=== PATIENT | male | born 1955 | race Caucasian/White ===

== ENCOUNTER 2016-03-28 06:22 | Inpatient (IN) | payer OTHER ==
[~2016-03-28] VITALS: Ht 188 cm; Wt 115.0 kg
[2016-03-28] VITALS (11 sets, daily range): BP systolic 133–189; BP diastolic 86–106; PULSE 93–125; RESP 13–20; TEMP 96.2–98.8; O2SAT 95–98
[2016-03-28] MEDS ORDERED: TRAM50TA PO (06:40)
[2016-03-28] MEDS ORDERED: VERA80TA PO (06:40)
[2016-03-28] MEDS ORDERED: ASPI81CH CHEW (06:40)
[2016-03-28] MEDS ORDERED: LORazepam 2 MG/ML VIAL IV PUSH ONE ×2 (06:45→07:30)
[2016-03-28] MEDS ORDERED: SODIUM CHLORIDE 0.9% FLUSH 5 ML FLUSH IVF PRN (06:45)
[2016-03-28] MEDS ORDERED: PANTOPRAZOLE INJ 80 MG in SODIUM CHLORIDE 0.9% INJ 35 ML IV ONE (06:45)
--- NOTE | 2016-03-28 06:53 | PD ---
HPI Chief Complaint: GI Complaint Time Seen by Provider: 06:44 Travel History International Travel<30 days: No Contact w/Intl Traveler<30days: No Traveled to known affect area: No History of Present Illness HPI This is a 60-year-old male who presents to the emergency department with rectal bleeding. Patient reports that last night he had an episode of vomiting and then today he had an episode of black loose stools. Patient reports some mild cramping abdominal pain near the bellybutton. He does say he feels somewhat lightheaded, dizzy and anxious. He's never had GI bleeding before. He had a colonoscopy 5 years ago which was normal. He does drink alcohol and he says he drinks about 6 drinks a day. He recently started drinking more heavily again after being sober for 3-4 months. He does take a baby aspirin every day and takes ibuprofen intermittently for arthritis. PFSH Past Medical History Heart Rhythm Problems: Yes (SVT) Cardiovascular Problems: Yes (HTN) Hypertension: Yes Tetanus Vaccination: < 5 Years Influenza Vaccination: Yes Social History Alcohol Use: Yes (6BEERS/ DAY) Tobacco Use: No Substance Use: No Allergies-Medications (Allergen,Severity, Reaction): Coded Allergies: Lisinopril (Verified Allergy, Mild, 03/28/16) ANGIOEDEMA Reported Meds & Prescriptions Reported Meds & Active Scripts Active Reported Verapamil (Verapamil HCl) 80 Mg Tab 80 Mg PO DAILY Tramadol (Tramadol HCl) 50 Mg Tab 50 Mg PO Q6H PRN Aspirin 81 Mg Chew 81 Mg CHEW DAILY Review of Systems Except as stated in HPI: all other systems reviewed are Neg Physical Exam Narrative GENERAL: Anxious appearing. SKIN: Warm and dry. HEAD: Atraumatic. Normocephalic. EYES: Pupils equal and round. No injection or drainage. ENT: Moist mucous membranes NECK: Trachea midline. CARDIOVASCULAR: Tachycardic. No murmur appreciated. RESPIRATORY: Clear to auscultation. Breath sounds equal bilaterally. GASTROINTESTINAL: Abdomen soft, non-tender, nondistended. Obvious melena on digital rectal exam. MUSCULOSKELETAL: No obvious deformities. NEUROLOGICAL: Awake and alert. No obvious cranial nerve deficits. All extremities. Data Data Last Documented VS Vital Signs Date Time Temp Pulse Resp B/P Pulse Ox O2 Delivery O2 Flow Rate FiO2 03/28/16 06:32 98.4 120 13 189/106 98 03/28/16 06:25 Room Air Orders Complete Blood Count With Diff (03/28/16 06:44) Comprehensive Metabolic Panel (03/28/16 06:44) Prothrombin Time / Inr (Pt) (03/28/16 06:44) Act Partial Throm Time (Ptt) (03/28/16 06:44) Type And Screen (03/28/16 06:44) Red Blood Cells (Rbc) (03/28/16 06:44) Ecg Monitoring (03/28/16 06:44) Iv Access Insert/Monitor (03/28/16 06:44) Oximetry (03/28/16 06:44) Sodium Chloride 0.9% Flush (Ns Flush) (03/28/16 06:45) Pantoprazole Inj (Protonix Inj) (03/28/16 06:45) Pantoprazole Inj (Protonix Inj) (03/28/16 06:45) Lorazepam Inj (Ativan Inj) (03/28/16 06:45) MDM Medical Decision Making Medical Screen Exam Complete: Yes Emergency Medical Condition: Yes Interpretation(s) Afebrile, tachycardic, hypertensive Differential Diagnosis Upper GI bleed, lower GI bleed, gastroenteritis, colitis, alcohol withdrawal Narrative Course This is a 60-year-old male who has a history of heavy alcohol use who presents to the emergency department with melena that started this morning. He was placed on a monitor and an IV was established. He is found to be tachycardic and hypertensive which to me suggests early alcohol withdrawal. He was given a milligram of IV Ativan. I think he should be reassessed and he may need further treatment. He was placed on a pantoprazole infusion. Hemoglobin will be checked. He was typed and crossed for 2 units of blood. Patient should be admitted for upper GI bleed following results of laboratory values. HemaPrompt Point of Care Internal Pos. & Neg. Controls: Passed Fecal Specimen Occult Blood: Positive Oksana Ayala MD Mar 28, 2016 06:53
[2016-03-28 07:02] LABS: AUTOMATED NEUTROPHIL # 7.1 TH/MM3 (1.8-7.7); BASOPHIL # 0.1 TH/MM3 (0-0.2); BASOPHIL % 0.6 % (0.0-2.0); EOSINOPHIL # 0.1 TH/MM3 (0-0.4); EOSINOPHIL % 0.8 % (0.0-4.0); HEMATOCRIT 41.7 % (39.0-51.0); HEMO FLAGS DIFF FINAL; LYMPH % 25.3 % (9.0-44.0); LYMPHOCYTE # 2.7 TH/MM3 (1.0-4.8); MEAN CELL VOLUME 88.8 FL (80.0-100.0); MEAN CORPUSCULAR HEMOGLOBIN 30.6 PG (27.0-34.0); MEAN CORPUSCULAR HGB CONC 34.5 % (32.0-36.0); MONO % 6.6 % (0.0-8.0); NEUT % 66.7 % (16.0-70.0); PLATELET COUNT 174 TH/MM3 (150-450); RED CELL DISTRIBUTION WIDTH 14.6 % (11.6-17.2); WHITE BLOOD COUNT 10.6 TH/MM3 (4.0-11.0)
[2016-03-28 07:12] LABS: APTT (PATIENT) 26.7 SEC (24.3-30.1); INTERNATIONAL NORMALIZED RATIO 1.1 RATIO; PROTHROMBIN TIME - PATIENT 12.1 SEC (9.8-11.6)
[2016-03-28 07:16] LABS: ANION GAP 11 MEQ/L (5-15); AST (GOT) 29 U/L (15-37); BICARBONATE 25.6 MEQ/L (21.0-32.0); BLOOD UREA NITROGEN 30 MG/DL (7-18); CHLORIDE 103 MEQ/L (98-107); GLOMERULAR FILTRATION RATE 84 ML/MIN (>89); POTASSIUM 4.5 MEQ/L (3.5-5.1); SODIUM (NA) 140 MEQ/L (136-145)
[2016-03-28 07:19] LABS: ALKALINE PHOSPHATASE 55 U/L (45-117); ALT (GPT) 29 U/L (12-78)
--- NOTE | 2016-03-28 07:22 | PD ---
Data Data Last Documented VS Vital Signs Date Time Temp Pulse Resp B/P Pulse Ox O2 Delivery O2 Flow Rate FiO2 03/28/16 06:49 14 98 Room Air 03/28/16 06:32 98.4 120 189/106 Orders Complete Blood Count With Diff (03/28/16 06:44) Comprehensive Metabolic Panel (03/28/16 06:44) Prothrombin Time / Inr (Pt) (03/28/16 06:44) Act Partial Throm Time (Ptt) (03/28/16 06:44) Type And Screen (03/28/16 06:44) Red Blood Cells (Rbc) (03/28/16 06:44) Ecg Monitoring (03/28/16 06:44) Iv Access Insert/Monitor (03/28/16 06:44) Oximetry (03/28/16 06:44) Sodium Chloride 0.9% Flush (Ns Flush) (03/28/16 06:45) Pantoprazole Inj (Protonix Inj) (03/28/16 06:45) Pantoprazole Inj (Protonix Inj) (03/28/16 06:45) Lorazepam Inj (Ativan Inj) (03/28/16 06:45) Magnesium (Mg) (03/28/16 07:00) Lorazepam Inj (Ativan Inj) (03/28/16 07:30) Chlordiazepoxide (Librium) (03/28/16 07:30) Labs Laboratory Tests Test 03/28/16 06:40 White Blood Count 10.6 TH/MM3 Red Blood Count 4.70 MIL/MM3 Hemoglobin 14.4 GM/DL Hematocrit 41.7 % Mean Corpuscular Volume 88.8 FL Mean Corpuscular Hemoglobin 30.6 PG Mean Corpuscular Hemoglobin 34.5 % Concent Red Cell Distribution Width 14.6 % Platelet Count 174 TH/MM3 Mean Platelet Volume 9.0 FL Neutrophils (%) (Auto) 66.7 % Lymphocytes (%) (Auto) 25.3 % Monocytes (%) (Auto) 6.6 % Eosinophils (%) (Auto) 0.8 % Basophils (%) (Auto) 0.6 % Neutrophils # (Auto) 7.1 TH/MM3 Lymphocytes # (Auto) 2.7 TH/MM3 Monocytes # (Auto) 0.7 TH/MM3 Eosinophils # (Auto) 0.1 TH/MM3 Basophils # (Auto) 0.1 TH/MM3 CBC Comment DIFF FINAL Differential Comment Prothrombin Time 12.1 SEC Prothromb Time International 1.1 RATIO Ratio Activated Partial 26.7 SEC Thromboplast Time Sodium Level 140 MEQ/L Potassium Level 4.5 MEQ/L Chloride Level 103 MEQ/L Carbon Dioxide Level 25.6 MEQ/L Anion Gap 11 MEQ/L Blood Urea Nitrogen 30 MG/DL Creatinine 0.91 MG/DL Estimat Glomerular Filtration 84 ML/MIN Rate Random Glucose 160 MG/DL Calcium Level 9.2 MG/DL Total Bilirubin 1.0 MG/DL Aspartate Amino Transf 29 U/L (AST/SGOT) Alanine Aminotransferase 29 U/L (ALT/SGPT) Alkaline Phosphatase 55 U/L Total Protein 8.2 GM/DL Albumin 4.0 GM/DL Blood Type A NEGATIVE MDM Supervised Visit with YINKA: No Narrative Course Patient signed out to me by previous provider. Please see associated over further details. In short patient is a 60-year-old male with history of alcohol abuse here with rectal bleeding, melanotic stools. Mild periumbilical abdominal discomfort with lightheadedness, dizziness. No history of GI bleeding , normal colonoscopy 5 years ago. Previous provider had strong suspicion for upper GI bleed given his alcohol, NSAID abuse. Signed out to me pending labs for ultimate admission. Patient tachycardic and given Ativan prior to my evaluation. He remains tachycardic given an additional 0.5 mg Ativan IV and 10 mg Librium orally. Laboratory workup unremarkable. Patient will be admitted for further evaluation of upper GI bleed, likely upper endoscopy. Diagnosis Primary Impression: Upper GI bleed Additional Impressions: Alcohol abuse Melena Admitting Information Admitting Physician Requests: Admit Lenore Crenshaw MD Mar 28, 2016 07:22
[2016-03-28] MEDS: PANTOPRAZOLE INJ 80 MG in SODIUM CHLORIDE 0.9% INJ 100 ML IV SCH ×2 (07:31→19:52)
[2016-03-28] MEDS ORDERED: FLUMAZENIL 0.5 MG/5 ML VIAL IV PUSH PRN (08:15)
[2016-03-28] MEDS ORDERED: SODIUM CHLORIDE 0.9% FLUSH 5 ML FLUSH FLUSH PRN (08:15)
[2016-03-28] MEDS ORDERED: LORazepam 1 MG TAB PO PRN (08:15)
[2016-03-28] MEDS ORDERED: LORazepam 2 MG/ML VIAL IV PUSH PRN ×4 (08:15)
[2016-03-28] MEDS ORDERED: LORazepam 2 MG TAB PO PRN (08:15)
[2016-03-28] MEDS: SODIUM CHLORIDE 0.9% FLUSH 5 ML FLUSH FLUSH SCH ×2 (09:00→21:00)
[2016-03-28] MEDS ORDERED: traMADol HCL 50 MG TAB PO PRN (09:00)
[2016-03-28] MEDS: VERAPAMIL HCL 80 MG TAB PO SCH (09:00)
[2016-03-28] MEDS ORDERED: ONDANSETRON HCL 4 MG/2 ML VIAL IV PRN (09:00)
[2016-03-28] MEDS ORDERED: cloNIDine HCL 0.1 MG TAB PO PRN (09:00)
--- NOTE | 2016-03-28 09:30 | PD.CONS ---
HPI History of Present Illness This is a 60 year old male patient who was not feeling well yesterday after playing golf. He had a few beers and states that probably didn't help. He tried to eat a BBQ [place], but states he vomited this back up. He reports that this was undigested food and a small amount of red blood. He went to bed and woke up around 530am with abdominal pain. He states that he had a "grumbling pain" throughout his abdomen without radiation and the urge to move his bowels. He then passed a large amount of black tarry stool. He does not usually get heartburn, although he did have some indigestion Thursday night. He did not take any OTC medications. No recent abnormal weight loss, decreased appetite. He does take a couple of Advil per day for arthritic knee pain. He drinks 6 beers a day. He has never had ulcers. He has never had a EGD, but had a colonoscopy 10 years ago and reports that this was normal. (Siri Keenan) PFSH Past Medical History HTN Daily ETOH use PSVT Past Surgical History Bilateral knee surgeries Right elbow surgery (Siri Keenan) Coded Allergies: Lisinopril (Verified Allergy, Mild, 03/28/16) ANGIOEDEMA Medications Allergies Coded Allergies Type Severity Reaction Last Updated Verified Lisinopril Allergy Mild 03/28/16 Yes Active Scripts Medications Dose Route/Sig Days Date Category Verapamil (Verapamil HCl) 80 Mg Tab 80 Mg PO DAILY 03/28/16 Reported Tramadol (Tramadol HCl) 50 Mg Tab 50 Mg PO Q6H PRN 03/28/16 Reported Aspirin 81 Mg Chew 81 Mg CHEW DAILY 03/28/16 Reported Family History Mother had colon cancer, diagnosed around 60 years of age. Social History No tobacco, no illicit drug use He drinks 6 beers a day. (Siri Keenan) Review of Systems Constitutional: COMPLAINS OF: Fatigue, Weight loss (intentional), DENIES: Change in appetite Respiratory: DENIES: Cough Cardiovascular: DENIES: Chest pain Gastrointestinal: COMPLAINS OF: Abdominal pain, Black stools, Nausea, Vomiting , Heartburn, DENIES: Bloody stools, Constipation, Diarrhea, Anorexia, Hematemesis Musculoskeletal: DENIES: Joint pain, Neck pain Integumentary: DENIES: Abnormal pigmentation Hematologic/lymphatic: DENIES: Bruising Neurologic: DENIES: Headache Psychiatric: DENIES: Confusion (KeenanSiri) GI Exam Vitals I&O Vital Signs Date Time Temp Pulse Resp B/P Pulse Ox O2 Delivery O2 Flow Rate FiO2 03/28/16 07:30 102 16 178/94 96 03/28/16 06:49 14 98 Room Air 03/28/16 06:32 98.4 120 13 189/106 98 03/28/16 06:25 97.3 125 16 141/100 97 Room Air Laboratory Test 03/28/16 06:40 White Blood Count 10.6 TH/MM3 Red Blood Count 4.70 MIL/MM3 Hemoglobin 14.4 GM/DL Hematocrit 41.7 % Mean Corpuscular Volume 88.8 FL Mean Corpuscular Hemoglobin 30.6 PG Mean Corpuscular Hemoglobin 34.5 % Concent Red Cell Distribution Width 14.6 % Platelet Count 174 TH/MM3 Mean Platelet Volume 9.0 FL Neutrophils (%) (Auto) 66.7 % Lymphocytes (%) (Auto) 25.3 % Monocytes (%) (Auto) 6.6 % Eosinophils (%) (Auto) 0.8 % Basophils (%) (Auto) 0.6 % Neutrophils # (Auto) 7.1 TH/MM3 Lymphocytes # (Auto) 2.7 TH/MM3 Monocytes # (Auto) 0.7 TH/MM3 Eosinophils # (Auto) 0.1 TH/MM3 Basophils # (Auto) 0.1 TH/MM3 CBC Comment DIFF FINAL Differential Comment Prothrombin Time 12.1 SEC Prothromb Time International 1.1 RATIO Ratio Activated Partial 26.7 SEC Thromboplast Time Sodium Level 140 MEQ/L Potassium Level 4.5 MEQ/L Chloride Level 103 MEQ/L Carbon Dioxide Level 25.6 MEQ/L Anion Gap 11 MEQ/L Blood Urea Nitrogen 30 MG/DL Creatinine 0.91 MG/DL Estimat Glomerular Filtration 84 ML/MIN Rate Random Glucose 160 MG/DL Calcium Level 9.2 MG/DL Magnesium Level 1.8 MG/DL Total Bilirubin 1.0 MG/DL Aspartate Amino Transf 29 U/L (AST/SGOT) Alanine Aminotransferase 29 U/L (ALT/SGPT) Alkaline Phosphatase 55 U/L Total Protein 8.2 GM/DL Albumin 4.0 GM/DL Blood Type A NEGATIVE Antibody Screen NEGATIVE Crossmatch Leukocyte-Reduced Red Blood Cells Blood Bank Comment Physical Examination HEENT: Normocephalic; atraumatic; no jaundice. Throat is clear. NECK: Neck is supple, no JVD, no lymphadenopathy. CHEST: CTA CARDIAC: ST 103 ABDOMEN: Soft, nondistended, nontender; no hepatosplenomegaly; bowel sounds are present in all four quadrants. EXTREMITIES: No clubbing, cyanosis, or edema. SKIN: Normal; no rash; no jaundice. 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 (Siri Keenan) Assessment and Plan Plan ASSESSMENT: - GIB, hematemesis, melena. Pt felt ill yesterday and vomited undigested food with small amount of blood last night. Woke up and had lower abdominal cramping and melena this am. No prior hx of PUD. Takes 2 Advil per day for arthritic knee pain. Drinks 6 beers per day. No hx of PUD. Never had EGD. NPO. Protonix Gtt. - Abdominal pain. Lower abdominal cramping followed by melena. Not currently having. - ETOH abuse. Daily ETOH use with 6 beers per day. LFT normal. Never has had DTs. DT precautions per primary PLAN: - Plan for egd today - Obtain consents - NPO - Monitor HH - Transfuse as necessary - Protonix gtt - Supportive care - Further recommendations to follow based on results of above - Pt seen and examined by Dr. Murdock and myself and this note is written on her behalf (Siri Keenan) Physician Comments seen, examined agree with above states he actually chocked on the food , than he vomited states he had similar episodes in the past (Dottie Murdock MD) Siri Keenan Mar 28, 2016 09:30 Dottie Murdock MD Mar 28, 2016 13:19
[2016-03-28] MEDS: SODIUM CHLOR 0.9% 1000 ML INJ 1,000 ML IV SCH ×2 (10:26→16:36)
--- NOTE | 2016-03-28 11:01 | HHI.HP ---
[facility] Service [facility] ([place], [place])ists Primary Care Physician [facility] Admission Diagnosis upper GI bleed, alcohol withdrawal Diagnoses: Chief Complaint: Black stool. Hematemesis. Travel History International Travel<30 Days: No Contact w/Intl Traveler <30 Da: No Traveled to Known Affected Are: No History of Present Illness 60-year-old male with a medical history significant for hypertension, PSVT, osteoarthritis, alcohol abuse who presents with complaint of black stool and a few episodes of hematemesis. The patient reports that he was eating a pork sandwich a couple of days ago when suddenly he felt like he was choking and vomited the food with some blood in it. He recalled the blood being about a quarter size. This morning he had a large amount of black tarry stool which prompted the emergency room visit. He reports mild diffuse abdominal pain. He admits to drinking 6 beers daily. Will normally take 2-4 tablets of ibuprofen for osteoarthritis and at times Aleve. Currently reports feeling a little weak. No nausea. Last colonoscopy was 10 years ago and was reportedly normal. Patient is being admitted for GI bleeding. Review of Systems Constitutional: COMPLAINS OF: Fatigue, DENIES: Fever, Chills Endocrine: DENIES: Polyuria Eyes: DENIES: Blurred vision Ears, nose, mouth, throat: DENIES: Oral lesions Respiratory: DENIES: Cough, Shortness of breath Cardiovascular: DENIES: Chest pain, Palpitations Gastrointestinal: COMPLAINS OF: Black stools Genitourinary: DENIES: Dysuria Other All other systems reviewed and are negative. Past Family Social History Past Medical History HTN Alcohol abuse Osteoarthritis of the knees. PSVT Past Surgical History Bilateral knee arthroscopic surgery Right elbow surgery Reported Medications Reported Meds & Active Scripts Active Reported Verapamil (Verapamil HCl) 80 Mg Tab 80 Mg PO DAILY Tramadol (Tramadol HCl) 50 Mg Tab 50 Mg PO Q6H PRN Aspirin 81 Mg Chew 81 Mg CHEW DAILY Allergies: Coded Allergies: Lisinopril (Verified Allergy, Mild, 03/28/16) ANGIOEDEMA Family History Mother had colon cancer, diagnosed around 60 years of age. She from Glioblastoma Social History No tobacco, no illicit drug use He drinks 6 beers a day. 16 oz each Physical Exam Vital Signs Vital Signs Date Time Temp Pulse Resp B/P Pulse Ox O2 Delivery O2 Flow Rate FiO2 03/28/16 10:00 102 20 156/95 97 Room Air 03/28/16 07:30 102 16 178/94 96 03/28/16 06:49 14 98 Room Air 03/28/16 06:32 98.4 120 13 189/106 98 03/28/16 06:25 97.3 125 16 141/100 97 Room Air Physical Exam GENERAL: This is a well-nourished, well-developed patient, in no apparent distress. SKIN: No rashes, ecchymoses or lesions. Cool and dry. HEAD: Atraumatic. Normocephalic. No temporal or scalp tenderness. EYES: Pupils equal round and reactive. Extraocular motions intact. No scleral icterus. No injection or drainage. ENT: Nose without bleeding, purulent drainage or septal hematoma. Throat without erythema, tonsillar hypertrophy or exudate. Uvula midline. Airway patent. NECK: Trachea midline. No JVD or lymphadenopathy. Supple, nontender, no meningeal signs. CARDIOVASCULAR: Regular rate and rhythm without murmurs, gallops, or rubs. RESPIRATORY: Clear to auscultation. Breath sounds equal bilaterally. No wheezes , rales, or rhonchi. GASTROINTESTINAL: Abdomen soft, non-tender, nondistended. No hepato-splenomegaly , or palpable masses. No guarding. MUSCULOSKELETAL: Extremities without clubbing, cyanosis, or edema. No joint tenderness, effusion, or edema noted. No calf tenderness. Negative Homans sign bilaterally. NEUROLOGICAL: Awake and alert. Cranial nerves II through XII intact. Motor and sensory grossly within normal limits. Five out of 5 muscle strength in all muscle groups. Normal speech. Laboratory Laboratory Tests Test 03/28/16 03/28/16 06:40 08:37 White Blood Count 10.6 Red Blood Count 4.70 Hemoglobin 14.4 Hematocrit 41.7 Mean Corpuscular Volume 88.8 Mean Corpuscular Hemoglobin 30.6 Mean Corpuscular Hemoglobin 34.5 Concent Red Cell Distribution Width 14.6 Platelet Count 174 Mean Platelet Volume 9.0 Neutrophils (%) (Auto) 66.7 Lymphocytes (%) (Auto) 25.3 Monocytes (%) (Auto) 6.6 Eosinophils (%) (Auto) 0.8 Basophils (%) (Auto) 0.6 Neutrophils # (Auto) 7.1 Lymphocytes # (Auto) 2.7 Monocytes # (Auto) 0.7 Eosinophils # (Auto) 0.1 Basophils # (Auto) 0.1 CBC Comment DIFF FINAL Differential Comment Prothrombin Time 12.1 Prothromb Time International 1.1 Ratio Activated Partial 26.7 Thromboplast Time Sodium Level 140 Potassium Level 4.5 Chloride Level 103 Carbon Dioxide Level 25.6 Anion Gap 11 Blood Urea Nitrogen 30 Creatinine 0.91 Estimat Glomerular Filtration 84 Rate Random Glucose 160 Calcium Level 9.2 Magnesium Level 1.8 Total Bilirubin 1.0 Aspartate Amino Transf 29 (AST/SGOT) Alanine Aminotransferase 29 (ALT/SGPT) Alkaline Phosphatase 55 Total Protein 8.2 Albumin 4.0 Blood Type A NEGATIVE A NEGATIVE Antibody Screen NEGATIVE Crossmatch Leukocyte-Reduced Red Blood Cells Blood Bank Comment Result Diagram: 03/28/1663903/28/16639 Assessment and Plan Problem List: (1) Upper GI bleed ICD Code: K92.2 Status: Acute (2) Melena ICD Code: K92.1 Status: Acute (3) Alcohol abuse ICD Code: F10.10 Status: Acute Assessment and Plan 60-year-old male with: GI bleeding: Probably upper GI bleeding. Patient reports episodes of hematemesis and later black tarry stools. He is an alcoholic who also takes NSAIDs. - H&H currently stable. Monitor every 8 hours. - Continue Protonix drip. Keep NPO. - GI consulted - Patient counseled on alcohol cessation and avoiding NSAIDs. Alcohol abuse: CIWA protocol. Patient counseled on the adverse effects of alcohol on his health. GI prophylaxis: PPI. DVT PPx: SCDs Discussed Condition With Dr. Barrera Physician Certification 2 Midnight Certification Type: Admission for Inpatient Services Order for Inpatient Services The services are ordered in accordance with Medicare regulations or non- Medicare payer requirements, as applicable. In the case of services not specified as inpatient-only, they are appropriately provided as inpatient services in accordance with the 2-midnight benchmark. Estimated LOS (days): 2 days is the estimated time the patient will need to remain in the hospital, assuming treatment plan goals are met and no additional complications. Post-Hospital Plan: Home Brady Jackson MD Mar 28, 2016 11:01
[2016-03-28] MEDS ORDERED: EPINEPHrine HCL (1:10,000) 1 MG/10 ML SYRINGE SQ ONE (12:53)
[2016-03-28] MEDS ORDERED: PROPOFOL 200 MG/20 ML AMP IV ONE (12:54)
[2016-03-28] MEDS: THIAMINE INJ 100 MG in SODIUM CHLORIDE 0.9% INJ 100 ML IV SCH (14:23)
[2016-03-28 15:29] LABS: HEMATOCRIT 36.9 % (39.0-51.0); REVIEW FLAG FINAL
[2016-03-28 20:39] LABS: HEMATOCRIT 35.6 % (39.0-51.0); REVIEW FLAG FINAL
[2016-03-28] MEDS ORDERED: diphenhydrAMINE HCL 50 MG CAP PO PRN (20:45)
[2016-03-29] VITALS: BP 130/103; PULSE 91; RESP 20; TEMP 97.3; O2SAT 95
[2016-03-29 04:00] VITALS: BP 140/95; PULSE 88; RESP 18; TEMP 96.3; O2SAT 96
[2016-03-29] MEDS: PANTOPRAZOLE INJ 80 MG in SODIUM CHLORIDE 0.9% INJ 100 ML IV SCH ×3 (06:35→21:32)
[2016-03-29 06:42] LABS: AUTOMATED NEUTROPHIL # 4.7 TH/MM3 (1.8-7.7); BASOPHIL % 0.5 % (0.0-2.0); EOSINOPHIL # 0.1 TH/MM3 (0-0.4); EOSINOPHIL % 0.9 % (0.0-4.0); HEMATOCRIT 32.7 % (39.0-51.0); HEMO FLAGS DIFF FINAL; LYMPH % 30.4 % (9.0-44.0); LYMPHOCYTE # 2.3 TH/MM3 (1.0-4.8); MEAN CELL VOLUME 88.8 FL (80.0-100.0); MEAN CORPUSCULAR HEMOGLOBIN 30.4 PG (27.0-34.0); MEAN CORPUSCULAR HGB CONC 34.2 % (32.0-36.0); MONO % 6.4 % (0.0-8.0); NEUT % 61.8 % (16.0-70.0); PLATELET COUNT 115 TH/MM3 (150-450); RED BLOOD COUNT 3.69 MIL/MM3 (4.50-5.90); RED CELL DISTRIBUTION WIDTH 14.8 % (11.6-17.2); WHITE BLOOD COUNT 7.7 TH/MM3 (4.0-11.0)
[2016-03-29 07:04] LABS: ALKALINE PHOSPHATASE 40 U/L (45-117); ALT (GPT) 19 U/L (12-78); ANION GAP 9 MEQ/L (5-15); AST (GOT) 17 U/L (15-37); BICARBONATE 25.5 MEQ/L (21.0-32.0); BLOOD UREA NITROGEN 26 MG/DL (7-18); CHLORIDE 110 MEQ/L (98-107); GLOMERULAR FILTRATION RATE 94 ML/MIN (>89); POTASSIUM 3.8 MEQ/L (3.5-5.1); SODIUM (NA) 144 MEQ/L (136-145); TOTAL BILIRUBIN ADULT 0.9 MG/DL (0.2-1.0)
[2016-03-29 08:00] VITALS: BP 136/91; PULSE 89; RESP 19; TEMP 98; O2SAT 96
[2016-03-29] MEDS: SODIUM CHLORIDE 0.9% FLUSH 5 ML FLUSH FLUSH SCH ×2 (09:00→21:00)
[2016-03-29] MEDS: VERAPAMIL HCL 80 MG TAB PO SCH (11:05)
[2016-03-29] MEDS: SODIUM CHLOR 0.9% 1000 ML INJ 1,000 ML IV SCH ×3 (11:05→21:32)
[2016-03-29 12:00] VITALS: BP 135/83; PULSE 81; RESP 18; TEMP 97.4; O2SAT 95
--- NOTE | 2016-03-29 13:16 | HHI.PR ---
Subjective Remarks Patient reports that he is feeling okay. No further hematemesis. He had a bowel movement this morning. Not as dark. Learning Support Aide. Objective Vitals Vital Signs Date Time Temp Pulse Resp B/P Pulse Ox O2 Delivery O2 Flow Rate FiO2 03/29/16 12:00 97.4 81 18 135/83 95 03/29/16 08:00 98.0 89 19 136/91 96 03/29/16 04:00 96.3 88 18 140/95 96 03/29/16 00:00 97.3 91 20 130/103 95 03/28/16 19:55 98.8 96 18 139/100 95 03/28/16 17:20 96.2 93 19 162/96 95 03/28/16 17:13 96 17 167/90 97 03/28/16 16:00 102 18 139/105 97 Room Air 03/28/16 14:00 102 19 133/86 96 Room Air 03/28/16 13:25 95 18 130/69 95 03/28/16 13:20 95 18 117/66 94 03/28/16 13:15 99.6 98 20 89/54 95 I/O 03/28/16 03/28/16 03/28/16 03/29/16 03/29/16 03/29/16 07:00 15:00 23:00 07:00 15:00 23:00 Intake Total 350 ml 1393 ml 693 ml Balance 350 ml 1393 ml 693 ml Intake Oral 720 ml 150 ml IV Total 350 ml 673 ml 543 ml # Voids 2 1 # Bowel Movements 2 0 Result Diagram: 03/29/16 0547 03/29/16 0547 Objective Remarks GENERAL: This is a well-nourished, well-developed patient, in no apparent distress. CARDIOVASCULAR: Normal rate and regular rhythm without murmurs, gallops, or rubs. RESPIRATORY: Good respiratory efforts. Breath sounds equal and clear to auscultation bilaterally. GASTROINTESTINAL: Abdomen soft, non-tender, non-distended. Normal active bowel sounds MUSCULOSKELETAL: Extremities without cyanosis, or edema. NEURO: Alert & Oriented x4 to person, place, time, situation. Moves all ext x4 PSYCH: Appropriate mood and affect. A/P Problem List: (1) Upper GI bleed ICD Code: K92.2 Status: Acute (2) Melena ICD Code: K92.1 Status: Acute (3) Alcohol abuse ICD Code: F10.10 Status: Acute Assessment and Plan 60-year-old male with: GI bleeding: Patient reports episodes of hematemesis and later black tarry stools. He is an alcoholic who also takes NSAIDs. - Appreciate GI following. Patient underwent EGD consistent with Marybel-Ervin tear. Status post Endo Clip by GI. - H&H currently stable. Continue to monitor - Continue Protonix drip. - Advance diet to clear until seen by GI. - Patient counseled on alcohol cessation and avoiding NSAIDs. Alcohol abuse: CIWA protocol. Patient counseled on the adverse effects of alcohol on his health. GI prophylaxis: PPI. DVT PPx: Brady Cantu MD Mar 29, 2016 13:16
--- NOTE | 2016-03-29 13:20 | HHI.GIFU ---
GI Follow-up Note Consult Follow-up Subjective: Patient laying in bed comfortably, no further bleeding, hb stable .s/p egd with control of bleeding -MW tear .Discussed about dietary and life style changes , especially avoiding etoh and nsaids Objective: PHYSICAL EXAMINATION: Vitals signs stable No fever Vital Signs Date Time Temp Pulse Resp B/P Pulse Ox O2 Delivery O2 Flow Rate FiO2 03/29/16 12:00 97.4 81 18 135/83 95 03/29/16 08:00 98.0 89 19 136/91 96 HEENT: Pupils round and reactive to light; normocephalic; atraumatic; no jaundice. Throat is clear. NECK: Neck is supple, no JVD, no lymphadenopathy. CHEST: Chest is clear to auscultation and percussion. CARDIAC: Regular rate and rhythm with no murmur gallop or rubs. ABDOMEN: Soft, nondistended, nontender; no hepatosplenomegaly; bowel sounds are present in all four quadrants. EXTREMITIES: No clubbing, cyanosis, or edema. SKIN: Normal; no rash; no jaundice. [employer]: No focal deficits; alert and oriented times three. Available Data (labs, X- Rays, Procedues) : Laboratory Tests Test 03/28/16 03/28/16 03/28/16 03/28/16 06:40 08:37 15:22 20:19 White Blood Count 10.6 TH/MM3 Red Blood Count 4.70 MIL/MM3 Hemoglobin 14.4 GM/DL 12.7 GM/DL 12.5 GM/DL Hematocrit 41.7 % 36.9 % 35.6 % Mean Corpuscular Volume 88.8 FL Mean Corpuscular Hemoglobin 30.6 PG Mean Corpuscular Hemoglobin 34.5 % Concent Red Cell Distribution Width 14.6 % Platelet Count 174 TH/MM3 Mean Platelet Volume 9.0 FL Neutrophils (%) (Auto) 66.7 % Lymphocytes (%) (Auto) 25.3 % Monocytes (%) (Auto) 6.6 % Eosinophils (%) (Auto) 0.8 % Basophils (%) (Auto) 0.6 % Neutrophils # (Auto) 7.1 TH/MM3 Lymphocytes # (Auto) 2.7 TH/MM3 Monocytes # (Auto) 0.7 TH/MM3 Eosinophils # (Auto) 0.1 TH/MM3 Basophils # (Auto) 0.1 TH/MM3 CBC Comment DIFF FINAL Differential Comment Prothrombin Time 12.1 SEC Prothromb Time International 1.1 RATIO Ratio Activated Partial 26.7 SEC Thromboplast Time Sodium Level 140 MEQ/L Potassium Level 4.5 MEQ/L Chloride Level 103 MEQ/L Carbon Dioxide Level 25.6 MEQ/L Anion Gap 11 MEQ/L Blood Urea Nitrogen 30 MG/DL Creatinine 0.91 MG/DL Estimat Glomerular Filtration 84 ML/MIN Rate Random Glucose 160 MG/DL Calcium Level 9.2 MG/DL Magnesium Level 1.8 MG/DL Total Bilirubin 1.0 MG/DL Aspartate Amino Transf 29 U/L (AST/SGOT) Alanine Aminotransferase 29 U/L (ALT/SGPT) Alkaline Phosphatase 55 U/L Total Protein 8.2 GM/DL Albumin 4.0 GM/DL Blood Type A NEGATIVE A NEGATIVE Antibody Screen NEGATIVE Crossmatch Leukocyte-Reduced Red Blood Cells Blood Bank Comment Test 03/29/16 05:47 White Blood Count 7.7 TH/MM3 Red Blood Count 3.69 MIL/MM3 Hemoglobin 11.2 GM/DL Hematocrit 32.7 % Mean Corpuscular Volume 88.8 FL Mean Corpuscular Hemoglobin 30.4 PG Mean Corpuscular Hemoglobin 34.2 % Concent Red Cell Distribution Width 14.8 % Platelet Count 115 TH/MM3 Mean Platelet Volume 9.4 FL Neutrophils (%) (Auto) 61.8 % Lymphocytes (%) (Auto) 30.4 % Monocytes (%) (Auto) 6.4 % Eosinophils (%) (Auto) 0.9 % Basophils (%) (Auto) 0.5 % Neutrophils # (Auto) 4.7 TH/MM3 Lymphocytes # (Auto) 2.3 TH/MM3 Monocytes # (Auto) 0.5 TH/MM3 Eosinophils # (Auto) 0.1 TH/MM3 Basophils # (Auto) 0.0 TH/MM3 CBC Comment DIFF FINAL Differential Comment Sodium Level 144 MEQ/L Potassium Level 3.8 MEQ/L Chloride Level 110 MEQ/L Carbon Dioxide Level 25.5 MEQ/L Anion Gap 9 MEQ/L Blood Urea Nitrogen 26 MG/DL Creatinine 0.83 MG/DL Estimat Glomerular Filtration 94 ML/MIN Rate Random Glucose 98 MG/DL Calcium Level 8.2 MG/DL Total Bilirubin 0.9 MG/DL Aspartate Amino Transf 17 U/L (AST/SGOT) Alanine Aminotransferase 19 U/L (ALT/SGPT) Alkaline Phosphatase 40 U/L Total Protein 6.5 GM/DL Albumin 3.2 GM/DL ASSESSMENT/PLAN: ugi bleeding secondary MW tear s/p endoscopic treatment with epinephrine and clips-no indication of active bleeding at this point esophagitis most likely reflux Recommendations cleat liquid diet ppi Carafate 1 gm po tid avoid nsaids , etoh if stable may dc in am egd in 2-3 weeks, will benefit from colonoscopy fro screening same time It was a pleasure seeing Harrison Miguel. Thank you for this consult. Entered by: Dottie Zamora MD Mar 29, 2016 13:20
[2016-03-29 13:39] LABS: HEMATOCRIT 33.6 % (39.0-51.0); REVIEW FLAG FINAL
[2016-03-29] MEDS: THIAMINE INJ 100 MG in SODIUM CHLORIDE 0.9% INJ 100 ML IV SCH (13:50)
[2016-03-29 16:00] VITALS: BP 171/95; PULSE 84; RESP 18; TEMP 97.3; O2SAT 97
[2016-03-29] MEDS: SUCRALFATE 1 GM/10 ML CUP PO SCH ×2 (16:55→21:32)
[2016-03-29 19:40] VITALS: BP 151/86; PULSE 75; RESP 17; TEMP 97.7; O2SAT 97
[2016-03-30] VITALS: BP 131/75; PULSE 81; RESP 16; TEMP 98; O2SAT 96
[2016-03-30 03:57] VITALS: BP 148/79; PULSE 80; RESP 16; TEMP 97.9; O2SAT 96
[2016-03-30 04:45] LABS: HEMATOCRIT 30.9 % (39.0-51.0); MEAN CELL VOLUME 89.2 FL (80.0-100.0); MEAN CORPUSCULAR HEMOGLOBIN 30.5 PG (27.0-34.0); MEAN CORPUSCULAR HGB CONC 34.2 % (32.0-36.0); PLATELET COUNT 104 TH/MM3 (150-450); RED BLOOD COUNT 3.46 MIL/MM3 (4.50-5.90); RED CELL DISTRIBUTION WIDTH 14.6 % (11.6-17.2); REVIEW FLAG FINAL; WHITE BLOOD COUNT 6.6 TH/MM3 (4.0-11.0)
[2016-03-30 05:10] LABS: BICARBONATE 26.1 MEQ/L (21.0-32.0); POTASSIUM 3.6 MEQ/L (3.5-5.1)
[2016-03-30] MEDS: SUCRALFATE 1 GM/10 ML CUP PO SCH (05:23)
[2016-03-30 08:00] VITALS: BP 166/90; PULSE 83; RESP 18; TEMP 97.2; O2SAT 99
[2016-03-30] MEDS: SODIUM CHLOR 0.9% 1000 ML INJ 1,000 ML IV SCH (08:10)
[2016-03-30] MEDS: SODIUM CHLORIDE 0.9% FLUSH 5 ML FLUSH FLUSH SCH (08:50)
[2016-03-30] MEDS: VERAPAMIL HCL 80 MG TAB PO SCH (08:50)
[2016-03-30] MEDS: PANTOPRAZOLE INJ 80 MG in SODIUM CHLORIDE 0.9% INJ 100 ML IV SCH (08:50)
[2016-03-30] MEDS ORDERED: SUCR1S PO (10:31)
[2016-03-30] MEDS ORDERED: PROT40TA PO (10:31)
--- NOTE | 2016-03-30 10:45 | HHI.DCPOC ---
Discharge Care Plan Diagnosis: (1) Upper GI bleed (2) Melena (3) Alcohol abuse Goals to Promote Your Health * To prevent worsening of your condition and complications * To maintain your health at the optimal level Directions to Meet Your Goals Take your medications as prescribed Follow your dietary instruction Follow activity as directed Keep your appointments as scheduled Take your immunizations and boosters as scheduled If your symptoms worsen call your PCP, if no PCP go to Urgent Care Center or Emergency Room Smoking is Dangerous to Your Health. Avoid second hand smoke Call the 24-hour hour crisis hotline for domestic abuse at Brady Jackson MD Mar 30, 2016 10:45
--- NOTE | 2016-03-30 10:46 | HHI.DS ---
Discharge Summary Admission Date Mar 28, 2016 at 08:09 Discharge Date: Mar 30, 2016 Admitting Diagnosis upper GI bleed, alcohol withdrawal (1) Upper GI bleed ICD Code: K92.2 (2) Melena ICD Code: K92.1 (3) Alcohol abuse ICD Code: F10.10 Procedures EGD Brief History - From Admission 60-year-old male with a medical history significant for hypertension, PSVT, osteoarthritis, alcohol abuse who presents with complaint of black stool and a few episodes of hematemesis. The patient reports that he was eating a pork sandwich a couple of days ago when suddenly he felt like he was choking and vomited the food with some blood in it. He recalled the blood being about a quarter size. This morning he had a large amount of black tarry stool which prompted the emergency room visit. He reports mild diffuse abdominal pain. He admits to drinking 6 beers daily. Will normally take 2-4 tablets of ibuprofen for osteoarthritis and at times Aleve. Currently reports feeling a little weak. No nausea. Last colonoscopy was 10 years ago and was reportedly normal. Patient is being admitted for GI bleeding. CBC/BMP: 03/30/16 0401 03/30/16 0401 Significant Findings Laboratory Tests Test 03/28/16 03/28/16 03/28/16 03/29/16 06:40 15:22 20:19 05:47 Prothrombin Time 12.1 SEC (9.8-11.6) Blood Urea Nitrogen 30 MG/DL (7-18) 26 MG/DL (7-18) Estimat Glomerular Filtration 84 ML/MIN (>89) Rate Random Glucose 160 MG/DL (74-106) Hemoglobin 12.7 GM/DL 12.5 GM/DL 11.2 GM/DL (13.0-17.0) (13.0-17.0) (13.0-17.0) Hematocrit 36.9 % 35.6 % 32.7 % (39.0-51.0) (39.0-51.0) (39.0-51.0) Red Blood Count 3.69 MIL/MM3 (4.50-5.90) Platelet Count 115 TH/MM3 (150-450) Chloride Level 110 MEQ/L (98-107) Calcium Level 8.2 MG/DL (8.5-10.1) Alkaline Phosphatase 40 U/L (45-117) Albumin 3.2 GM/DL (3.4-5.0) Test 03/29/16 03/30/16 12:53 04:01 Hemoglobin 11.2 GM/DL 10.6 GM/DL (13.0-17.0) (13.0-17.0) Hematocrit 33.6 % 30.9 % (39.0-51.0) (39.0-51.0) Red Blood Count 3.46 MIL/MM3 (4.50-5.90) Platelet Count 104 TH/MM3 (150-450) Chloride Level 109 MEQ/L (98-107) Calcium Level 8.2 MG/DL (8.5-10.1) PE at Discharge GENERAL: This is a well-nourished, well-developed patient, in no apparent distress. CARDIOVASCULAR: Normal rate and regular rhythm without murmurs, gallops, or rubs. RESPIRATORY: Good respiratory efforts. Breath sounds equal and clear to auscultation bilaterally. GASTROINTESTINAL: Abdomen soft, non-tender, non-distended. Normal active bowel sounds MUSCULOSKELETAL: Extremities without cyanosis, or edema. NEURO: Alert & Oriented x4 to person, place, time, situation. Moves all ext x4 PSYCH: Appropriate mood and affect. Pt update on day of discharge Patient reports that he is feeling well. Wants to eat then go home. Hospital Course 60-year-old male admitted with a GI bleed. Patient reports episodes of hematemesis and later black tarry stools. He is an alcoholic who also takes NSAIDs. Patient was followed by GI. Patient underwent EGD consistent with Marybel- Ervin tear. Status post Endo Clip by GI. H&H stable. Patient counseled on alcohol cessation and avoiding NSAIDs. He is discharged on PPI and Carafate per GI. He is to follow up outpatient with GI for repeat EGD and colonoscopy. Alcohol abuse: Treated per [facility] protocol. Patient counseled on the adverse effects of alcohol on his health. He is strongly advised to quit. Pt Condition on Discharge: Good Discharge Disposition: Discharge Home Discharge Time: <= 30 minutes Discharge Instructions DIET: Follow Instructions for: Heart Healthy Diet Additional Diet Instructions: Start with soft foods for a couple of days. Activities you can perform: Regular-No Restrictions Follow up Referrals: Gastroenterology - 2 Weeks with Dottie Murdock MD New Medications: Pantoprazole (Protonix) 40 Mg Tab 40 MG PO DAILY Ulcer Prevention #30 Ref 0 TAB Sucralfate Liq (Sucralfate Liq) 1 Gm/10 Ml Dinora 1 GM PO TIDAC Days 30 Continued Medications: Tramadol (Tramadol) 50 Mg Tab 50 MG PO Q6H PRN PAIN Ref 0 TAB Verapamil (Verapamil) 80 Mg Tab 80 MG PO DAILY #60 Ref 0 TAB Discontinued Medications: Aspirin (Aspirin) 81 Mg Chew 81 MG CHEW DAILY Ref 0 TAB Brady Jackson MD Mar 30, 2016 10:45
[2016-03-30 12:00] VITALS: BP 151/92; PULSE 74; RESP 18; TEMP 96.7; O2SAT 97
== END 2016-03-30 13:16 | disposition home or self-care (01) | DRG 370 ==
LOC: NEPE 06:22 → NEDA 08:09 → NEDH 13:06 → N06B 17:26
PROVIDERS: ADMIT Family Medicine; ATTEND Family Medicine
PROC: 0W3P8ZZ Control Bleeding in Gastrointestinal Tract, Via Natural or Artificial Opening Endoscopic (ICD-10-PCS; principal; 2016-03-28 12:45)
DX: K22.6 Gastro-esophageal laceration-hemorrhage syndrome (principal); I10 Essential (primary) hypertension; K21.0 Gastro-esophageal reflux disease with esophagitis; F10.10 Alcohol abuse, uncomplicated; Z79.899 Other long term (current) drug therapy; M17.0 Bilateral primary osteoarthritis of knee
CPT/HCPCS: 80048; 80053; 83735; 85014; 85018; 85025; 85027; 85610; 85730; 86850; 86900; 86901; 86920; 96365; 96375; 96376; C9113; J0171; J2060; J2405; J3411; J7030; Q0163

== ENCOUNTER 2016-09-04 13:02 | Emergency (ER) | payer OTHER ==
[~2016-09-04] VITALS: Ht 188 cm; Wt 105.0 kg
[~2016-09-04 13:02] MED LIST: PROT40TA PO; SUCR1S PO; TRAM50TA PO; VERA80TA PO
[2016-09-04 13:04] VITALS: BP 174/99; PULSE 60; RESP 20; O2SAT 97
--- NOTE | 2016-09-04 13:35 | PD ---
HPI Chief Complaint: Musculoskeletal Complaint Time Seen by Provider: 13:31 Travel History International Travel<30 days: No Contact w/Intl Traveler<30days: No Traveled to known affect area: No History of Present Illness HPI 61-year-old male presents to emergency Department with complaint of trigger finger to his right fourth finger for the past 2-3 days. Seen at the OR and was sent here for evaluation. Denies paresthesias, loss of sensation to the affected extremity. Reports the fingers is stuck in the flexed position and he cannot actively straighten it. He can passively straighten it although it is painful. Denies injury. Denies fever, vomiting. Has been taking tramadol for symptom management. Has no other medical complaints. No other modifying factors or associated signs and symptoms. PFSH Past Medical History Heart Rhythm Problems: Yes (SVT) Cardiovascular Problems: Yes (HTN) Hypertension: Yes Musculoskeletal: No Neurologic: No Respiratory: No Social History Alcohol Use: Yes (6BEERS/ DAY) Tobacco Use: No Substance Use: No Allergies-Medications (Allergen,Severity, Reaction): Coded Allergies: Lisinopril (Verified Allergy, Mild, 09/04/16) ANGIOEDEMA Reported Meds & Prescriptions Reported Meds & Active Scripts Active Protonix (Pantoprazole Sodium) 40 Mg Tab 40 Mg PO DAILY Sucralfate Liq (Sucralfate) 1 Gm/10 Ml Dinora 1 Gm PO TIDAC 30 Days Reported Verapamil (Verapamil HCl) 80 Mg Tab 80 Mg PO DAILY Tramadol (Tramadol HCl) 50 Mg Tab 50 Mg PO Q6H PRN Review of Systems Except as stated in HPI: all other systems reviewed are Neg Physical Exam Narrative GENERAL: Well-nourished, well-developed male patient, in no acute distress SKIN: Warm and dry. HEAD: Atraumatic. Normocephalic. EYES: Pupils equal and round. No scleral icterus. No injection or drainage. ENT: Mucosa pink and moist. Airway patent. NECK: Trachea midline. CARDIOVASCULAR: Regular rate. RESPIRATORY: No accessory muscle use. GASTROINTESTINAL: Flat. MUSCULOSKELETAL: Right fourth finger in the flexed position; pink and warm; less than 3 second cap refill; sensory intact; without erythema, edema; able to passively straighten the finger. Right upper extremity supple and non-tense with 2+ pulses and sensory intact. No obvious deformities. No clubbing. No cyanosis. No edema. NEUROLOGICAL: Awake and alert. Oriented 3. No obvious cranial nerve deficits. Motor grossly within normal limits. Normal speech. PSYCHIATRIC: Appropriate mood and affect; insight and judgment normal. Data Data Last Documented VS Vital Signs Date Time Temp Pulse Resp B/P Pulse Ox O2 Delivery O2 Flow Rate FiO2 09/04/16 13:04 60 20 174/99 97 Room Air MDM Medical Decision Making Medical Screen Exam Complete: Yes Emergency Medical Condition: Yes Medical Record Reviewed: Yes Differential Diagnosis Trigger finger, dislocation, fracture Narrative Course 61-year-old male with right fourth finger with trigger finger. Patient was sent by OR. Instructed patient to follow up with hand surgeon. Instructed patient to follow up with primary care provider. Patient verbalizes understanding and agreement with treatment plan. Patient is medically cleared and stable for discharge. Discussed reasons to return to the emergency department. Patient agrees with treatment plan. The patients vital signs are stable and the patient is stable for outpatient follow-up and treatment. Patient discharged home, stable and in no acute distress. Diagnosis Primary Impression: Trigger finger Qualified Code: M65.341 - Trigger ring finger of right hand Referrals: Hand Surgeon Primary Care Physician Patient Instructions: General Instructions, Trigger Finger (ED) Additional Instructions: Ibuprofen or Tylenol instructed and as needed for pain and inflammation Finger splint as needed Follow-up with hand surgeon Follow-up with primary care provider Return to the emergency department immediately with worsening of symptoms Med/Other Pt SpecificInfo: No Change to Meds, No Meds Exist/No RX given Disposition: 01 DISCHARGE HOME Condition: Stable Yue Cain Sep 04, 2016 13:35
== END 2016-09-04 14:14 | disposition home or self-care (01) ==
LOC: NEPK 13:02
DX: M65.341 Trigger finger, right ring finger (principal); I47.1 Supraventricular tachycardia; I10 Essential (primary) hypertension
CPT/HCPCS: 99282